=== PATIENT | male | born 1975 | race Caucasian/White ===

== ENCOUNTER 2022-02-05 12:54 | Day surgery (SDC) | payer OTHER ==
[~2022-02-05] VITALS: Ht 193 cm; Wt 122.5 kg
[~2022-02-05 12:54] MED LIST: BUPROPION XL300 MG PO; MELOXICAM15 MG PO; METHOCARBAMOL500 MG
--- NOTE | 2022-02-05 13:16 | NUR ---
THIS RN TO ROOM TO ASSIST WITH IV START. IV STARTED PER PROTOCOL, BRISK BLOOD RETURN NOTED. IV FLUIDS STARTED BY MANOLO SANTIAGO. PT TOLERATED PROCEEDURE WELL. NO ADDITIONAL NEEDS AT THIS TIME. CALL LIGHT WITHIN REACH.
[2022-02-05] MEDS ORDERED: GABAPENTIN300 MG PO (13:18)
[2022-02-05] MEDS ORDERED: MAGNESIUM250 M1 PO (13:19)
[2022-02-05] MEDS ORDERED: TURMERIC500 M3 PO (13:19)
--- NOTE | 2022-02-05 15:07 | NUR ---
02/05/22 1507 Amalia Manuel 1459 PT ARRIVED IN PACU SLEEPY WITH NO C/O'S. ABD SOFT.
--- NOTE | 2022-02-07 09:15 | OR ---
[facility] [address], [place] [address] Signed DATE OF OPERATION: 02/05/2022 SURGEON: Danuta Mccauley MD PREOPERATIVE DIAGNOSIS: Colon screening. POSTOPERATIVE DIAGNOSIS: Multiple polyps, left colon, sigmoid and rectum. PROCEDURE: Total colonoscopy to cecum with cold morcellation polypectomy x4 and cold snare polypectomy x3. ANESTHESIA: Intravenous sedation; fentanyl 150 mcg, Versed 8 mg. INDICATION: This 46-year-old white man is a patient of Dr. Ann and is here for a screening colonoscopy. He has no symptoms of bleeding, diarrhea, or constipation. He understands the risks of bleeding, infection, and perforation related to colonoscopy and wished to proceed. FINDINGS: The prep was excellent. Complete colonoscopy was undertaken to the cecum without question. He had 7 polyps in total, 4 in the rectum, 1 in the sigmoid and 2 in the descending colon. All were excised with cold morcellation technique or cold snare technique (cold snare x3). DESCRIPTION OF PROCEDURE: The patient was brought to the endoscopy suite and placed in lateral decubitus position, given intravenous sedation to the point of slurred speech and nystagmus. Digital rectal examination was normal. An Olympus video colonoscope was passed in the rectum and manipulated throughout the colon, ultimately intubating the cecum itself. The ileocecal valve and appendiceal orifice were normal. Scope was withdrawn from that point and examination throughout showed no sign of abnormality into the left colon, where 2 small polyps were noted. They may have been hyperplastic. Both were excised with cold morcellation technique. The scope was further withdrawn and another such polyp was noted in the sigmoid. This Electronically Signed By: DANUTA MCCAULEY MD 02/07/22 0915 PATIENT NAME: TANIA HUFFMAN OPERATIVE REPORT DATE OF : 73 REPORT #: [id number] PHYSICIAN: DANUTA MCCAULEY MD PCP: AMANDA ANN MD REPORT IS CONFIDENTIAL AND NOT TO BE RELEASED WITHOUT AUTHORIZATION [facility] [address] [place] [id number] Signed was large and almost certainly adenomatous. This was excised with cold snare technique. Further withdrawal showed another polyp at the rectosigmoid, also excised with cold snare technique and another with cold morcellation technique. Two additionals were excised with cold morcellation technique. The scope was then removed. The patient was taken to the recovery room in good condition. CONCLUDING DIAGNOSIS: Multiple polyps, some hyperplastic, some adenomatous. PLAN: Recommend repeat colonoscopy in 3 years, sooner if clinically indicated unless pathology should indicate otherwise (serrated changes, etc.) He will return to the ongoing care of Dr. Ann. MD ETTA Marinelli/NARENL /[id number] cc: Amanda Ann MD Copies: AAMNDA ANN MD ~ Electronically Signed By: DANUTA MCCAULEY MD 02/07/22 0915 PATIENT NAME: TANIA HUFFMAN OPERATIVE REPORT DATE OF : 73 REPORT #: [id number] PHYSICIAN: DANUTA MCCAULEY MD PCP: AMANDA ANN MD REPORT IS CONFIDENTIAL AND NOT TO BE RELEASED WITHOUT AUTHORIZATION
--- NOTE | 2022-02-07 15:09 | PATH ---
[facility] [address] [place], [place] [address] Signed SPECIMEN(S): A DESCENDING/LEFT COLON POLYPS SPECIMEN(S): B RECTOSIGMOID POLYP SPECIMEN(S): C RECTOSIGMOID POLYP SPECIMEN(S): D RECTAL POLYPS SPECIMEN(S): E RECTAL POLYPS SPECIMEN SOURCE: A. DESCENDING/LEFT COLON POLYPS B. RECTOSIGMOID POLYP C. RECTOSIGMOID POLYP D. RECTAL POLYPS E. RECTAL POLYPS CLINICAL HISTORY: Screening colonoscopy; multiple polyps. FINAL PATHOLOGIC DIAGNOSIS: A. Descending / left colon polyps: - Hyperplastic polyps (two fragments). B. Rectosigmoid polyp: - Hyperplastic polyps (three fragments). C. Rectosigmoid polyp: - Tubular adenoma (one fragment). - Hyperplastic polyp (one fragment). D. Rectal polyps: - Hyperplastic polyp (one fragment). E. Rectal polyps: - Hyperplastic polyp (two fragments). JVR:evelin:C2NR MICROSCOPIC EXAMINATION: Histologic sections of all submitted blocks are examined by light microscopy. These findings, together with the gross examination, support the pathologic diagnosis. GROSS DESCRIPTION: Five specimens are received in five containers, labeled "JS." A. The specimen, labeled "JS, descending colon polyps," is received in formalin and consists of three paz soft tissue fragments that measure 0.1-0.2 cm in greatest dimension. The specimen is entirely submitted in cassette (A1). PATIENT NAME: TANIA HUFFMANWARD PATHOLOGY DATE OF : 73 REPORT #: [id number] PHYSICIAN: NADIARatio REX PCP: AMANDA HERNANDEZ MD REPORT IS CONFIDENTIAL AND NOT TO BE RELEASED WITHOUT AUTHORIZATION [facility] [address] [place], [place] [address] Signed B. The specimen, labeled "JS, rectosigmoid colon polyp," is received in formalin and consists of four paz soft tissue fragments that measure 0.1 cm in greatest dimension. The specimen is entirely submitted in cassette (B1). C. The specimen, labeled "JS, rectosigmoid colon polyp," is received in formalin and consists of two paz soft tissue fragments that measure 0.1-0.3 cm in greatest dimension. The specimen is entirely submitted in cassette (C1). D. The specimen, labeled "JS, rectal polyps," is received in formalin and consists of one paz soft tissue fragment that measures 0.4 cm in greatest dimension. The specimen is entirely submitted in cassette (D1). E. The specimen, labeled "JS, rectal polyps," is received in formalin and consists of three paz soft tissue fragments that measure 0.2 cm in greatest dimension. The specimen is entirely submitted in cassette (E1). SADE (under the direct supervision of a pathologist) The Gross Description was prepared using a voice recognition system. The report was reviewed for accuracy; however, sound-alike word errors, addition and/or deletions may occur. If there is any question about this report, please contact Client Services. PERFORMING LABORATORY: The technical component was performed by [facility], [address] [place] [id number] (CLIA# [id number]). Professional interpretation was performed by [facility], [address] [place] [id number] (CLIA#: [id number]). Diagnostician: Omer Kline MD Pathologist Electronically Signed 02/07/2022 Copies: ~ PATIENT NAME: TANIA HUFFMANWARD PATHOLOGY DATE OF : 73 REPORT #: [id number] PHYSICIAN: TARA PATHOLOGY PCP: AMANDA HERNANDEZ MD REPORT IS CONFIDENTIAL AND NOT TO BE RELEASED WITHOUT AUTHORIZATION
== END 2022-02-05 15:40 | disposition home or self-care (01) ==
LOC: OPS 12:54 → DS 12:54 → OPS 14:00 → DS 14:00 → OPS 15:40
PROVIDERS: ATTEND Surgery
PROC: 0DBN8ZX Excision of Sigmoid Colon, Via Natural or Artificial Opening Endoscopic, Diagnostic (ICD-10-PCS; 2022-02-05)
PROC: 0DBE8ZX Excision of Large Intestine, Via Natural or Artificial Opening Endoscopic, Diagnostic (ICD-10-PCS; principal; 2022-02-05 14:00)
DX: Z12.11 Encounter for screening for malignant neoplasm of colon (principal); D12.7 Benign neoplasm of rectosigmoid junction; K63.5 Polyp of colon; K62.1 Rectal polyp; Z86.16 Personal history of COVID-19; Z88.0 Allergy status to penicillin
CPT/HCPCS: 99153; G0500; J2250; J3010; J7121

== ENCOUNTER 2025-04-26 05:54 | Day surgery (SDC) | payer OTHER ==
[~2025-04-26] VITALS: Ht 193 cm; Wt 118.1 kg
[~2025-04-26 05:54] MED LIST changes: +GABAPENTIN300 MG PO; +MAGNESIUM250 M1 PO; +MIDAZOLAM HCL 5 MG/5 ML VIAL IV PRN; +PROZAC20 MG PO; +RED YEAST RICE600 MG; +TURMERIC500 M3 PO; +fentaNYL citrate 100 MCG/2 ML VIAL IV PRN
[2025-04-26 06:06] VITALS: BP 124/85
[2025-04-26] MEDS ORDERED: DICLOFENAC SODI75 MG PO (06:09)
[2025-04-26] MEDS ORDERED: LIDOCAINE HCL 1% 5 ML SDV INJ ONE (07:00)
[2025-04-26] MEDS ORDERED: IBLOOD GLUCOSE TEST STRIP 1 EA TEST VI PRN (07:00)
[2025-04-26] MEDS ORDERED: LACTATED RINGER'S 1,000 ML IV SCH (07:00)
[2025-04-26] MEDS ORDERED: MIDAZOLAM HCL 5 MG/5 ML VIAL ONE (07:04)
[2025-04-26] MEDS ORDERED: fentaNYL citrate 100 MCG/2 ML VIAL ONE (07:04)
--- NOTE | 2025-04-26 08:33 | NUR ---
04/26/25 0833 Savita Godfrey 0825: PT ARRIVED TO PACU VIA STRETCHER. PT REACTIVE AT THIS TIME. PT ON RA. 0832: AT BEDSIDE.
[2025-04-26 09:02] VITALS: BP 106/81
--- NOTE | 2025-04-27 11:53 | OR ---
[facility] [address] [place], [place] [address] Signed DATE OF OPERATION: 04/26/2025 SURGEON: Danuta Mccauley MD PREOPERATIVE DIAGNOSIS: History of polyps, 2021. POSTOPERATIVE DIAGNOSIS: Normal colon to cecum. PROCEDURE: Total colonoscopy to cecum. ANESTHESIA: Intravenous sedation, fentanyl 100 mcg, and Versed 5 mg. INDICATION: This 50-year-old white man is patient of Dr. Ann and underwent colonoscopy by me in 2021 where he was found to have five polyps, four of them hyperplastic, one tubular adenoma. He has no current symptoms of bleeding, diarrhea, or constipation. No family history of colon cancer. He is admitted at this time to undergo colonoscopy. He understands the risk of bleeding, infection, and perforation. FINDINGS: The prep was excellent. Complete colonoscopy was undertaken of the cecum with full intubation of the cecum. There was no evidence of polyps, diverticular formation, colitis, or cancer. Retroflexed view was normal as well. DESCRIPTION OF PROCEDURE: The patient was brought to the endoscopy suite and placed in lateral decubitus position, given intravenous sedation a point of slurred speech and nystagmus with full cardiopulmonary monitoring. Digital rectal examination was normal. An Olympus video colonoscope was passed in the rectum and manipulated throughout the colon ultimately intubating the cecum itself. The ileocecal valve and appendiceal orifice were normal. Scope was then withdrawn and examination throughout showed no sign of abnormality specifically no polyps, diverticular formation, colitis, or cancer. Retroflexed view of the rectum was normal. The scope was straightened, withdrawn, and removed. The patient was taken to the recovery room in good condition. Electronically Signed By: DANUTA MCCAULEY MD 04/27/25 1153 PATIENT NAME: TANIA HUFFMAN OPERATIVE REPORT DATE OF : 73 REPORT #: [id number] PHYSICIAN: DANUTA MCCAULEY MD PCP: AMANDA NAN MD REPORT IS CONFIDENTIAL AND NOT TO BE RELEASED WITHOUT AUTHORIZATION [facility] [address] [place] [address] [place], [place] [address] Signed CONCLUDING DIAGNOSIS: No evidence of recurrent or new polyps. PLAN: Recommend repeat colonoscopy in 10 years, sooner if symptoms should develop. He will return to the ongoing care of Dr. Ann. MD ETTA Marinelli/NARENL /[id number] cc: Amanda Ann MD Copies: AMANDA ANN MD ~ Electronically Signed By: DANUTA MCCAULEY MD 04/27/25 1153 PATIENT NAME: TANIA HUFFMAN OPERATIVE REPORT DATE OF : 73 REPORT #: [id number] PHYSICIAN: DANUTA MCCAULEY MD PCP: AMANDA ANN MD REPORT IS CONFIDENTIAL AND NOT TO BE RELEASED WITHOUT AUTHORIZATION
== END 2025-04-26 09:07 | disposition home or self-care (01) ==
LOC: DS 05:54
PROVIDERS: ATTEND Surgery
PROC: 0DJD8ZZ Inspection of Lower Intestinal Tract, Via Natural or Artificial Opening Endoscopic (ICD-10-PCS; principal; 2025-04-26 07:30)
DX: Z12.11 Encounter for screening for malignant neoplasm of colon (principal); Z86.0100 Personal history of colon polyps, unspecified; Z86.0101 Personal history of adenomatous and serrated colon polyps; Z88.0 Allergy status to penicillin; Z91.030 Bee allergy status
CPT/HCPCS: 99153; G0500; J2250; J3010; J7121